=== PATIENT | male | born 1960 | race Caucasian/White ===

== ENCOUNTER 2019-04-27 10:02 | Emergency (ER) | payer BC ==
[~2019-04-27] VITALS: Ht 177.8 cm; Wt 83.9 kg
[2019-04-27 10:09] VITALS: BP_SYST 135
--- NOTE | 2019-04-27 10:15 | NUR ---
Patient to ER bed 7 to gown for evaluation. Side rails up. Report given to Leonel RANDALL.
--- NOTE | 2019-04-27 10:20 | NUR ---
Pt is here for c/o lower pelvic pain with urgency, pressure, and decrease stream since yesterday. Pt has history of enlarged prostate, took 2 ES tylenol this morning for the pain. Pt is alert and oriented, sitting on bed, no distress noted.
--- NOTE | 2019-04-27 10:24 | NUR ---
at bedside to assess pt.
[2019-04-27] MEDS ORDERED: KETOROLAC TROMETHAMINE 60 MG/2 ML VIAL IM ONE (11:45)
[2019-04-27 12:43] VITALS: BP_SYST 130
--- NOTE | 2019-04-27 12:43 | NUR ---
Patient given written and verbal discharge instructions and verbalizes understanding. ER MD discussed with patient the results and treatment provided. Patient in stable condition. ID arm band removed. Rx of norco 5-325mg and z0fran 5mg given. Opportunity for questions provided and answered. Medication side effect fact sheet provided.
== END 2019-04-27 12:43 | disposition home or self-care (01) ==
LOC: SED 10:02
DX: N40.0 Benign prostatic hyperplasia without lower urinary tract symptoms (principal); R33.9 Retention of urine, unspecified
CPT/HCPCS: 96372; 99283; J1885

== ENCOUNTER 2019-04-27 19:12 | Emergency (ER) | payer BC ==
[~2019-04-27] VITALS: Ht 177.8 cm; Wt 83.9 kg
[2019-04-27 19:24] VITALS: BP_SYST 129
--- NOTE | 2019-04-27 19:31 | NUR ---
Pt c/o pain to urethra and pelvis since yesterday with urinary retention with symptoms worsening today. Pt states that he drank 3-4 8 oz glasses of water today with no urinary output. Pt has hx of enlarged prostate and has been taking Flomax x 10 yrs. Pt denies hematuria, no bladder distension noted.
--- NOTE | 2019-04-27 19:31 | NUR ---
Patient to ER bed 4 to gown for evaluation. Side rails up. Report given to Hossein RANDALL.
--- NOTE | 2019-04-27 19:40 | NUR ---
Dr. Dubois at bedside to assess pt.
[2019-04-27] MEDS ORDERED: LIDOCAINE 2% JELLY UROJECT 10 ML MM ONE (20:00)
[2019-04-27] MEDS ORDERED: LIDOCAINE JELLY 5 ML TUBE ONE (20:08)
--- NOTE | 2019-04-27 20:10 | NUR ---
# 16 FR Mendez catheter with use of sterile technique. Immediate return of 24 cc cloudy yellow urine with sedimentation noted. Bedside drainage bag placed below level of bladder. Urine sample collected and sent to lab. Pt tolerated procedure Fair. Lidocaine 2% Jelly used as lubricant per MD order.
[2019-04-27 20:11] LABS: BASOPHILS % (AUTO) 0.5 % (0.0-2.0); EOSINOPHILS # (AUTO) 0.1 K/uL (0.0-0.4); EOSINOPHILS % (AUTO) 1.1 % (0.0-4.0); HEMOGLOBIN 15.5 g/dL (14.0-18.0); LYMPHOCYTES # (AUTO) 1.3 K/uL (1.0-5.5); LYMPHOCYTES % (AUTO) 17.9 % (20.5-51.5); MEAN CORPUSCULAR HEMOGLOBIN 32 pg (27-31); MEAN CORPUSCULAR HGB CONC 35 % (32-36); MEAN CORPUSCULAR VOLUME 90 fL (79.0-98.0); MONOCYTES # (AUTO) 0.6 K/uL (0.0-1.0); MONOCYTES % (AUTO) 7.9 % (1.7-9.3); NEUTROPHILS # (AUTO) 5.4 K/uL (1.8-7.7); NEUTROPHILS % (AUTO) 72.6 % (40.0-70.0); PLATELET COUNT (AUTO) 249 K/uL (130-430); RED CELL DISTRIBUTION WIDTH 13.2 % (9.0-15.0); WHITE BLOOD COUNT (AUTO) 7.5 K/uL (4.8-10.8)
[2019-04-27] MEDS ORDERED: NACL 0.9% 1,000 ML IV ONE (20:15)
[2019-04-27 20:19] LABS: CALCIUM 9.1 mg/dL (8.4-11.0); CREATININE 1.03 mg/dL (0.55-1.30); POTASSIUM 3.9 mmol/L (3.5-5.1)
[2019-04-27 20:19] LABS: BILIRUBIN,URINE NEGATIVE (NEGATIVE); BLOOD, URINE NEGATIVE (NEGATIVE); CLARITY/URINE CLEAR (CLEAR); COLOR,URINE YELLOW (YELLOW); GLUCOSE,URINE NEGATIVE (NEGATIVE); KETONES,URINE NEGATIVE (NEGATIVE); LEUKOCYTE ESTERASE ,URINE NEGATIVE (NEGATIVE); NITRITE, URINE NEGATIVE (NEGATIVE); PROTEIN URINE NEGATIVE (NEGATIVE); UROBILINOGEN,URINE 0.2 (0.2-1.0)
[2019-04-27 20:23] LABS: TOTAL BILIRUBIN 0.5 mg/dL (0.0-1.0)
[2019-04-27] MEDS ORDERED: LIDOCAINE JELLY 5 ML TUBE MM ONE (20:30)
[2019-04-27 23:24] VITALS: BP_SYST 149
--- NOTE | 2019-04-27 23:24 | NUR ---
IV and Mendez Catheter removed intact.
--- NOTE | 2019-04-27 23:42 | NUR ---
Patient given written and verbal discharge instructions and verbalizes understanding. ER MD discussed with patient the results and treatment provided. Patient in stable condition. ID arm band removed. IV catheter removed intact and dressing applied, no active bleeding. Patient educated on pain management and to follow up with PMD. Pain Scale no c/o pain. Opportunity for questions provided and answered. Medication side effect fact sheet provided.
== END 2019-04-27 23:42 | disposition home or self-care (01) ==
LOC: SED 19:12
DX: R33.9 Retention of urine, unspecified (principal); N40.0 Benign prostatic hyperplasia without lower urinary tract symptoms; R03.0 Elevated blood-pressure reading, without diagnosis of hypertension; Z90.49 Acquired absence of other specified parts of digestive tract
CPT/HCPCS: 36415; 51702; 74176; 80053; 81003; 85025; 99284; J7030

== ENCOUNTER 2020-08-29 16:51 | Emergency (ER) | payer BC ==
[~2020-08-29] VITALS: Ht 177.8 cm; Wt 88.5 kg
[2020-08-29 17:09] VITALS: BP_SYST 126
[2020-08-29 18:43] LABS: BASOPHILS % (AUTO) 0.6 % (0.0-2.0); EOSINOPHILS # (AUTO) 0.1 K/uL (0.0-0.4); EOSINOPHILS % (AUTO) 1.7 % (0.0-4.0); HEMATOCRIT 43.3 % (36-54); HEMOGLOBIN 15.3 g/dL (14.0-18.0); LYMPHOCYTES # (AUTO) 1.1 K/uL (1.0-5.5); LYMPHOCYTES % (AUTO) 19.1 % (20.5-51.5); MEAN CORPUSCULAR HEMOGLOBIN 32 pg (27-31); MEAN CORPUSCULAR HGB CONC 35 % (32-36); MEAN CORPUSCULAR VOLUME 90 fL (79.0-98.0); MONOCYTES # (AUTO) 0.6 K/uL (0.0-1.0); MONOCYTES % (AUTO) 9.5 % (1.7-9.3); NEUTROPHILS % (AUTO) 69.1 % (40.0-70.0); PLATELET COUNT (AUTO) 239 K/uL (130-430); RED BLOOD CELL COUNT(AUTO) 4.81 MIL/uL (4.2-6.2); RED CELL DISTRIBUTION WIDTH 12.6 % (9.0-15.0); WHITE BLOOD COUNT (AUTO) 5.8 K/uL (4.8-10.8)
[2020-08-29 18:58] LABS: ANION GAP 8 (5-15); CALCIUM 9.3 mg/dL (8.4-11.0); CHLORIDE 105 mmol/L (98-107); CREATININE 0.74 mg/dL (0.55-1.30); GLUCOSE 88 mg/dL (70-99); POTASSIUM 3.9 mmol/L (3.5-5.1); SODIUM SERUM 140 mmol/L (136-145); UREA NITROGEN, BLOOD 11 mg/dL (8-21)
[2020-08-29 19:02] LABS: GFR AFRICAN AMERICAN 140 mL/min (>90)
[2020-08-29 19:06] LABS: ALANINE AMINOTRANSFERASE 37 U/L (12-78); ASPARTATE AMINOTRANSFERASE 21 U/L (10-37); TOTAL BILIRUBIN 0.4 mg/dL (0.0-1.0)
[2020-08-29 19:32] VITALS: BP_SYST 121
== END 2020-08-29 19:31 | disposition home or self-care (01) ==
LOC: SED 16:51
DX: R00.2 Palpitations (principal)
CPT/HCPCS: 36415; 80053; 84484; 85025; 99283